=== PATIENT | male | born 1965 | race African-American/Black ===

== ENCOUNTER 2020-12-16 18:23 | Inpatient (IN) | payer MEDICAID ==
[~2020-12-16] VITALS: Ht 157.5 cm; Wt 82.6 kg
[~2020-12-16 18:23] MED LIST: ARIP10TA8 PO; FAMO20 PO; HYDR25TA2 PO; LISI-893 PO; MIRT-89 PO; MULT-1239 PO; TAMS-13 PO
[2020-12-16 20:35] VITALS: BP 139/84
[2020-12-16] MEDS ORDERED: ZOLPIDEM TARTRATE 10 MG TABLET PO PRN (21:00)
[2020-12-16] MEDS ORDERED: PNEUMOCOCCAL VACCINE POLYVALENT 0.5 ML VIAL [PPSV23] IM ONE ×2 (21:30→22:30)
[2020-12-16] MEDS ORDERED: INFLUENZA VIRUS VACCINE QVS 2020-21 (6MO+)/PF 60 MCG/0.5 ML SYRINGE IM ONE (21:30)
[2020-12-17 04:35] VITALS: BP 126/74
[2020-12-17 08:19] LABS: BASOPHILS % (AUTO) 0.4 % (0.0-2.0); EOSINOPHILS % (AUTO) 2.4 % (1.0-6.0); HEMATOCRIT 37.3 % (41-53); HEMOGLOBIN 12.2 g/dL (13.5-17.5); LYMPHOCYTES % (AUTO) 27.4 % (22.0-44.0); MEAN CORPUSCULAR HEMOGLOBIN 27.2 pg (26.0-34.0); MEAN CORPUSCULAR HGB CONC 32.6 G/dL (31.0-37.0); MEAN CORPUSCULAR VOLUME 84 fL (80-100); MONOCYTES # (AUTO) 0.5 K/uL (0.1-1.0); MONOCYTES % (AUTO) 6.3 % (2.0-9.0); NEUTROPHILS # (AUTO) 4.7 K/uL (1.8-7.7); NEUTROPHILS % (AUTO) 63.5 % (40.0-70.0); PLATELET COUNT (AUTO) 301 K/uL (150-450); RED BLOOD CELL COUNT(AUTO) 4.46 MIL/uL (4.50-5.90); RED CELL DISTRIBUTION WIDTH 14.7 % (11.5-14.5)
[2020-12-17 08:41] LABS: HEMOGLOBIN A1C 4.8 % (3.8-5.6)
[2020-12-17 09:05] LABS: ALANINE AMINOTRANSFERASE 23 U/L (12-78); ALBUMIN 3.2 g/dL (3.4-5.0); ALKALINE PHOSPHATASE 70 U/L (46-116); ANION GAP 10 mmol/L (8-16); ASPARTATE AMINOTRANSFERASE 13 U/L (15-37); BILIRUBIN,TOTAL 0.4 mg/dL (0.1-1.0); CALCIUM, TOTAL 8.8 mg/dL (8.8-10.5); CARBON DIOXIDE 27 mmol/L (22-29); CHLORIDE 104 mmol/L (98-107); CHOL/HDL RATIO 3.1 (4.2-7.3); CHOLESTEROL 163 mg/dL (131-200); CREATININE 0.85 mg/dL (0.60-1.30); GLOMERULAR FILTR. RATE CALC > 60 mL/min (>60); GLUCOSE,RANDOM 100 mg/dL (70-110); HDL CHOLESTEROL 52 mg/dL (40-60); LDL CHOL (CALC.) 101 mg/dL (0-130); POTASSIUM 3.5 mmol/L (3.5-5.1); SODIUM SERUM 141 mmol/L (136-145); THYROID STIMULATING HORMONE 1.49 uIU/mL (0.36-3.74); TOTAL PROTEIN, SERUM 7.3 g/dL (6.4-8.2); TRIGLYCERIDES 51 mg/dL (15-150); UREA NITROGEN, BLOOD 11 mg/dL (7-18)
[2020-12-17 09:19] VITALS: BP 149/89
[2020-12-17] MEDS ORDERED: BENZOCAINE/MENTHOL LOZENGE PO PRN (10:30)
[2020-12-17] MEDS ORDERED: ONDANSETRON HCL 4 MG TABLET PO PRN (10:30)
[2020-12-17] MEDS ORDERED: IBUPROFEN 600 MG TABLET PO PRN (10:30)
[2020-12-17] MEDS ORDERED: DOCUSATE SODIUM 100 MG CAPSULE PO PRN (10:30)
[2020-12-17] MEDS ORDERED: ALBUTEROL SULFATE HFA 90 MCG/PUFF 8 GM INHALER IH PRN (10:30)
[2020-12-17] MEDS ORDERED: CloNIDine HCL 0.1 MG TABLET PO PRN (10:30)
[2020-12-17] MEDS ORDERED: BACITRACIN 28 GM OINTMENT TP PRN (10:30)
[2020-12-17] MEDS ORDERED: OMEPRAZOLE 20 MG CAPSULE PO PRN (10:30)
[2020-12-17] MEDS ORDERED: COLCHICINE 0.6 MG TABLET PO PRN (10:30)
[2020-12-17] MEDS ORDERED: LOPERAMIDE HCL 2 MG CAPSULE PO PRN (10:30)
[2020-12-17] MEDS ORDERED: PETROLATUM,WHITE 28 GM JELLY TP PRN (10:30)
[2020-12-17] MEDS ORDERED: MAGNESIUM HYDROXIDE SUSPENSION 30 ML UDCUP PO PRN (10:30)
[2020-12-17] MEDS ORDERED: MAG HYDROX/AL HYDROX/SIMETH ES 30 ML SUSPENSION UDCUP PO PRN (10:30)
[2020-12-17] MEDS: ARIPiprazole 10 MG TABLET PO SCH (11:20)
[2020-12-17] MEDS: TAMSULOSIN HCL 0.4 MG CAPSULE PO SCH (11:21)
[2020-12-17] MEDS: LISINOPRIL 10 MG TABLET PO SCH (11:21)
[2020-12-17] MEDS: ACETAMINOPHEN 325 MG TABLET PO PRN (12:32)
[2020-12-17] MEDS: LORazepam 2 MG TABLET PO PRN (13:10)
[2020-12-17 16:59] VITALS: BP 137/69
[2020-12-17] MEDS: MIRTAZAPINE 15 MG TABLET PO SCH (21:19)
[2020-12-18 04:38] VITALS: BP 126/72
[2020-12-18 08:27] VITALS: BP 164/91
[2020-12-18] MEDS: ARIPiprazole 10 MG TABLET PO SCH (08:40)
[2020-12-18] MEDS: LISINOPRIL 10 MG TABLET PO SCH (08:40)
[2020-12-18] MEDS: TAMSULOSIN HCL 0.4 MG CAPSULE PO SCH (08:40)
[2020-12-18] MEDS: ALLOPURINOL 100 MG TABLET PO SCH (08:41)
[2020-12-18] MEDS: MULTIVITAMINS WITH MINERALS, THERAPEUTIC TABLET PO SCH (09:19)
[2020-12-18] MEDS: FAMOTIDINE 20 MG TABLET PO SCH (09:19)
[2020-12-18] MEDS: HALOPERIDOL 5 MG TABLET PO PRN (16:30)
[2020-12-18] MEDS: LORazepam 2 MG TABLET PO PRN (16:30)
[2020-12-18 19:45] VITALS: BP 180/95
[2020-12-18 20:53] VITALS: BP 152/82
[2020-12-18] MEDS: MIRTAZAPINE 15 MG TABLET PO SCH (21:07)
[2020-12-19 06:18] VITALS: BP 146/79
[2020-12-19] MEDS: MULTIVITAMINS WITH MINERALS, THERAPEUTIC TABLET PO SCH (09:30)
[2020-12-19] MEDS: ALLOPURINOL 100 MG TABLET PO SCH (09:30)
[2020-12-19] MEDS: FAMOTIDINE 20 MG TABLET PO SCH (09:30)
[2020-12-19] MEDS: LISINOPRIL 10 MG TABLET PO SCH (09:30)
[2020-12-19] MEDS: ARIPiprazole 10 MG TABLET PO SCH (09:30)
[2020-12-19] MEDS: TAMSULOSIN HCL 0.4 MG CAPSULE PO SCH (09:30)
[2020-12-19 10:19] VITALS: BP 146/84
[2020-12-19 17:08] VITALS: BP 106/68
[2020-12-19] MEDS: MIRTAZAPINE 15 MG TABLET PO SCH (20:34)
[2020-12-19] MEDS: LORazepam 2 MG TABLET PO PRN (20:37)
[2020-12-20 06:31] VITALS: BP 135/86
[2020-12-20 08:20] VITALS: BP 132/84
[2020-12-20] MEDS: ALLOPURINOL 100 MG TABLET PO SCH (08:47)
[2020-12-20] MEDS: HALOPERIDOL 5 MG TABLET PO PRN (08:47)
[2020-12-20] MEDS: FAMOTIDINE 20 MG TABLET PO SCH (08:47)
[2020-12-20] MEDS: ARIPiprazole 10 MG TABLET PO SCH (08:48)
[2020-12-20] MEDS: LORazepam 2 MG TABLET PO PRN (08:48)
[2020-12-20] MEDS: TAMSULOSIN HCL 0.4 MG CAPSULE PO SCH (08:48)
[2020-12-20] MEDS: LISINOPRIL 10 MG TABLET PO SCH (08:48)
[2020-12-20] MEDS: MULTIVITAMINS WITH MINERALS, THERAPEUTIC TABLET PO SCH (08:48)
[2020-12-20 17:19] VITALS: BP 130/75
[2020-12-20] MEDS: ACETAMINOPHEN 325 MG TABLET PO PRN (17:56)
[2020-12-20] MEDS: MIRTAZAPINE 15 MG TABLET PO SCH (20:59)
[2020-12-21 06:25] VITALS: BP 149/86
[2020-12-21] MEDS: TAMSULOSIN HCL 0.4 MG CAPSULE PO SCH (08:38)
[2020-12-21] MEDS: MULTIVITAMINS WITH MINERALS, THERAPEUTIC TABLET PO SCH (08:38)
[2020-12-21] MEDS: ARIPiprazole 10 MG TABLET PO SCH (08:38)
[2020-12-21] MEDS: LISINOPRIL 10 MG TABLET PO SCH (08:38)
[2020-12-21] MEDS: FAMOTIDINE 20 MG TABLET PO SCH (08:38)
[2020-12-21] MEDS: ALLOPURINOL 100 MG TABLET PO SCH (08:39)
[2020-12-21 08:56] VITALS: BP 155/92
[2020-12-21 16:17] VITALS: BP 121/74
[2020-12-21] MEDS: MIRTAZAPINE 15 MG TABLET PO SCH (20:55)
[2020-12-22 04:17] VITALS: BP 138/72
[2020-12-22] MEDS: ARIPiprazole 10 MG TABLET PO SCH (08:48)
[2020-12-22] MEDS: ALLOPURINOL 100 MG TABLET PO SCH (08:49)
[2020-12-22] MEDS: MULTIVITAMINS WITH MINERALS, THERAPEUTIC TABLET PO SCH (08:49)
[2020-12-22] MEDS: LISINOPRIL 10 MG TABLET PO SCH (08:49)
[2020-12-22] MEDS: LORazepam 2 MG TABLET PO PRN (08:49)
[2020-12-22] MEDS: TAMSULOSIN HCL 0.4 MG CAPSULE PO SCH (08:49)
[2020-12-22] MEDS: FAMOTIDINE 20 MG TABLET PO SCH (08:50)
[2020-12-22] MEDS: ACETAMINOPHEN 325 MG TABLET PO PRN (08:56)
[2020-12-22 09:05] VITALS: BP 133/84
[2020-12-22 16:23] VITALS: BP 132/73
[2020-12-22] MEDS: MIRTAZAPINE 15 MG TABLET PO SCH (20:48)
[2020-12-23 06:33] VITALS: BP 153/66
[2020-12-23 08:42] VITALS: BP 132/83
[2020-12-23] MEDS: TAMSULOSIN HCL 0.4 MG CAPSULE PO SCH (09:13)
[2020-12-23] MEDS: ARIPiprazole 10 MG TABLET PO SCH (09:13)
[2020-12-23] MEDS: MULTIVITAMINS WITH MINERALS, THERAPEUTIC TABLET PO SCH (09:13)
[2020-12-23] MEDS: FAMOTIDINE 20 MG TABLET PO SCH (09:13)
[2020-12-23] MEDS: ALLOPURINOL 100 MG TABLET PO SCH (09:13)
[2020-12-23] MEDS: LISINOPRIL 10 MG TABLET PO SCH (09:13)
[2020-12-23 16:40] VITALS: BP 121/87
[2020-12-23] MEDS: ACETAMINOPHEN 325 MG TABLET PO PRN (17:22)
[2020-12-23] MEDS: MIRTAZAPINE 15 MG TABLET PO SCH (20:38)
[2020-12-24 06:33] VITALS: BP 127/80
[2020-12-24 08:35] VITALS: BP 123/75
[2020-12-24] MEDS: LISINOPRIL 10 MG TABLET PO SCH (08:45)
[2020-12-24] MEDS: MULTIVITAMINS WITH MINERALS, THERAPEUTIC TABLET PO SCH (08:45)
[2020-12-24] MEDS: ALLOPURINOL 100 MG TABLET PO SCH (08:45)
[2020-12-24] MEDS: HALOPERIDOL 5 MG TABLET PO PRN (08:45)
[2020-12-24] MEDS: FAMOTIDINE 20 MG TABLET PO SCH (08:45)
[2020-12-24] MEDS: TAMSULOSIN HCL 0.4 MG CAPSULE PO SCH (08:45)
[2020-12-24] MEDS: ARIPiprazole 10 MG TABLET PO SCH (08:45)
[2020-12-24 09:28] LABS: % IRON SATURATION 21.2 % (30-44)
[2020-12-24 17:28] VITALS: BP 102/64
[2020-12-24] MEDS: MIRTAZAPINE 15 MG TABLET PO SCH (20:22)
[2020-12-24] MEDS ORDERED: POTASSIUM CHLORIDE 20 MEQ ER TABLET PO ONE (20:30)
[2020-12-25 03:39] VITALS: BP 121/77
[2020-12-25] MEDS: ALLOPURINOL 100 MG TABLET PO SCH (09:07)
[2020-12-25] MEDS: ARIPiprazole 10 MG TABLET PO SCH (09:08)
[2020-12-25] MEDS: TAMSULOSIN HCL 0.4 MG CAPSULE PO SCH (09:08)
[2020-12-25] MEDS: MULTIVITAMINS WITH MINERALS, THERAPEUTIC TABLET PO SCH (09:08)
[2020-12-25] MEDS: FAMOTIDINE 20 MG TABLET PO SCH (09:08)
[2020-12-25] MEDS: LISINOPRIL 10 MG TABLET PO SCH (09:08)
[2020-12-25 09:51] VITALS: BP 131/86
[2020-12-25] MEDS: HALOPERIDOL 5 MG TABLET PO PRN (16:30)
[2020-12-25] MEDS: LORazepam 2 MG TABLET PO PRN (16:31)
[2020-12-25 17:00] VITALS: BP 104/70
[2020-12-25] MEDS: MIRTAZAPINE 15 MG TABLET PO SCH (20:49)
[2020-12-26 05:13] VITALS: BP 122/77
[2020-12-26 08:27] VITALS: BP 115/63
[2020-12-26] MEDS: ARIPiprazole 10 MG TABLET PO SCH (08:57)
[2020-12-26] MEDS: MULTIVITAMINS WITH MINERALS, THERAPEUTIC TABLET PO SCH (08:57)
[2020-12-26] MEDS: FAMOTIDINE 20 MG TABLET PO SCH (08:58)
[2020-12-26] MEDS: ALLOPURINOL 100 MG TABLET PO SCH (08:58)
[2020-12-26] MEDS: LISINOPRIL 10 MG TABLET PO SCH (08:58)
[2020-12-26] MEDS: TAMSULOSIN HCL 0.4 MG CAPSULE PO SCH (08:58)
[2020-12-26 16:25] VITALS: BP 102/60
[2020-12-26] MEDS: MIRTAZAPINE 15 MG TABLET PO SCH (20:59)
[2020-12-27 00:30] VITALS: BP 106/62
[2020-12-27 08:24] VITALS: BP 117/66
[2020-12-27] MEDS: MULTIVITAMINS WITH MINERALS, THERAPEUTIC TABLET PO SCH (09:14)
[2020-12-27] MEDS: ARIPiprazole 10 MG TABLET PO SCH (09:14)
[2020-12-27] MEDS: FAMOTIDINE 20 MG TABLET PO SCH (09:14)
[2020-12-27] MEDS: ALLOPURINOL 100 MG TABLET PO SCH (09:14)
[2020-12-27] MEDS: TAMSULOSIN HCL 0.4 MG CAPSULE PO SCH (09:14)
[2020-12-27] MEDS: LISINOPRIL 10 MG TABLET PO SCH (09:14)
[2020-12-27] MEDS: ACETAMINOPHEN 325 MG TABLET PO PRN ×2 (10:03→16:12)
[2020-12-27 16:12] VITALS: BP 102/65
[2020-12-27 16:17] VITALS: BP 102/65
[2020-12-27] MEDS: MIRTAZAPINE 15 MG TABLET PO SCH (20:19)
[2020-12-28 04:27] VITALS: BP 108/62
[2020-12-28] MEDS ORDERED: ALLO100T2 PO (06:50)
[2020-12-28] MEDS ORDERED: MIRT-89 PO (07:00)
[2020-12-28 08:27] VITALS: BP 126/76
[2020-12-28] MEDS: FAMOTIDINE 20 MG TABLET PO SCH (09:45)
[2020-12-28] MEDS: TAMSULOSIN HCL 0.4 MG CAPSULE PO SCH (09:45)
[2020-12-28] MEDS: LISINOPRIL 10 MG TABLET PO SCH (09:46)
[2020-12-28] MEDS: ARIPiprazole 10 MG TABLET PO SCH (09:46)
[2020-12-28] MEDS: MULTIVITAMINS WITH MINERALS, THERAPEUTIC TABLET PO SCH (09:46)
[2020-12-28] MEDS: ALLOPURINOL 100 MG TABLET PO SCH (09:48)
== END 2020-12-28 10:15 | disposition home or self-care (01) | DRG 750 ==
LOC: B3A 21:19
PROVIDERS: ADMIT Psychiatry & Neurology Psychiatry; ATTEND Psychiatry & Neurology Psychiatry
DX: F25.9 Schizoaffective disorder, unspecified (principal); R45.851 Suicidal ideations; F15.10 Other stimulant abuse, uncomplicated; F12.90 Cannabis use, unspecified, uncomplicated; K21.9 Gastro-esophageal reflux disease without esophagitis; J44.9 Chronic obstructive pulmonary disease, unspecified; I10 Essential (primary) hypertension; M10.9 Gout, unspecified; N40.0 Benign prostatic hyperplasia without lower urinary tract symptoms; G47.00 Insomnia, unspecified; K59.00 Constipation, unspecified; F41.9 Anxiety disorder, unspecified; Z71.51 Drug abuse counseling and surveillance of drug abuser; Z88.0 Allergy status to penicillin
CPT/HCPCS: 83036; 83540; 83550; 84132; 84439; 84443